=== PATIENT | female | born 2000 | race Caucasian/White ===

== ENCOUNTER 2021-07-10 15:45 | Emergency (ER) | payer BC ==
[~2021-07-10] VITALS: Ht 167.6 cm; Wt 104.5 kg
[2021-07-10] MEDS ORDERED: VENLAFAXINE225 MG PO (16:48)
[2021-07-10] MEDS ORDERED: LAMICTAL 25MG T25 MG PO (16:49)
[2021-07-10] MEDS ORDERED: AMOXICILLIN 50500 MG PO (18:46)
[2021-07-10 18:50] VITALS: BP 134/82; PULSE 98; TEMP 98.9
== END 2021-07-10 18:51 | disposition home or self-care (01) ==
LOC: COL.ER 15:45 → EDBD 15:48 → COL.ER 18:51
DX: H60.92 Unspecified otitis externa, left ear (principal); H66.91 Otitis media, unspecified, right ear; F32.9 Major depressive disorder, single episode, unspecified; Z79.899 Other long term (current) drug therapy
CPT/HCPCS: J1885

== ENCOUNTER → 2021-09-01 | Outpatient (CLI) | payer BC ==
[~2021-09-01] MED LIST: AMOXICILLIN 50500 MG PO; LAMICTAL 25MG T25 MG PO; VENLAFAXINE225 MG PO
== END ==
LOC: COL.RAD 08-23 12:45
DX: N93.9 Abnormal uterine and vaginal bleeding, unspecified (principal)